=== PATIENT | female | born 1945 | race Hispanic/Latino ===

== ENCOUNTER 2021-08-10 22:07 | Emergency (ER) | payer OTHER ==
[~2021-08-10] VITALS: Ht 160 cm; Wt 49.0 kg
[2021-08-10] MEDS: LORAZEPAM 1 MG TABLET ONE (23:10)
[2021-08-10] MEDS: LORAZEPAM 1 MG TABLET PO ONE (23:18)
[2021-08-10 23:58] VITALS: BP 174/83
== END 2021-08-11 00:08 | disposition home or self-care (01) ==
LOC: EDBD 22:07 → EDH 22:07
DX: I10 Essential (primary) hypertension (principal); F43.0 Acute stress reaction; Z79.899 Other long term (current) drug therapy